=== PATIENT | female | born 1980 | race Caucasian/White ===

== ENCOUNTER 2016-10-24 03:50 | Emergency (ER) | payer BC, OTHER ==
[~2016-10-24] VITALS: Ht 162.6 cm; Wt 54.7 kg
[2016-10-24 03:53] VITALS: TEMP 37; Ht 162.6 cm; Wt 54.7 kg
[2016-10-24] MEDS ORDERED: KETOROLAC TROMETHAMINE 30 MG/ML VIAL IV STA (04:26)
--- NOTE | 2016-10-24 04:27 | EMERGENCY ROOM VISIT NOTE ---
History Report prepared by Giovana: Edis Robles Under the Supervision of: Dr. Tiff Watkins D.O. First contact with patient: 03:59 Chief Complaint: FLANK PAIN Stated Complaint: LEFT SIDE,BACK AND FRONT PAIN History of Present Illness The patient is a 35 year old female who presents to the Emergency Room with complaints of persistent left flank pain for one week. The pain radiates to her left lower quadrant and is rated 4/10 in severity. The patient was unable to sleep tonight secondary to pain, which prompted her current visit. The patient was seen by a [facility] walk-in clinic where she had a negative urine test and was told her pain is probably musculoskeletal. The patient denies urinary symptoms. The patient notes that she sleeps in awkward positions due to her 4 year old child sleeping in bed with her and her , which could be a source of musculoskeletal pain. She has not started any new strenuous activities recently. The patient went to a chiropractor for some finger numbness she was experiencing. The chiropractor resolved her numbness but did not affect her flank pain. The patient denies sore throat or cough. She has two children at home at 4 and 2 years old. Source of History: patient Onset: one week Position: back (left flank) Symptom Intensity: 4/10 Timing: other (persistent) Associated Symptoms: + abdominal pain, No urinary symptoms Review of Systems See HPI for pertinent positives & negatives. A total of 10 systems reviewed and were otherwise negative. Past Medical & Surgical Medical Problems: (1) Carpal Tunnel Syndrome (2) Carpal Tunnel Syndrome (3) Family History No pertinent family history Social History Smoking Status: Never Smoker Marital Status: Housing Status: lives with family Occupation Status: employed Current/Historical Medications Scheduled Control Pills ( Control Pills), 1 TAB PO DAILY Allergies Coded Allergies: No Known Allergies (Unverified , 10/24/16) Physical Exam Vital Signs Date Time Temp Pulse Resp B/P Pulse Ox O2 Delivery O2 Flow Rate FiO2 10/24/16 05:50 66 20 121/80 98 Room Air 10/24/16 03:53 37.0 80 18 137/87 100 Room Air Physical Exam HEENT: Head - normocephalic and atraumatic Pupils are equal, round, and reactive to light. Extraocular eye muscles are intact, and sclera are anicteric. Nose - moist nasal mucosa without discharge. Mouth - moist buccal mucosa. Oropharynx is nonerythematous and there is no tonsillar exudate or edema noted. Neck: Supple; no JVD, nuchal rigidity, cervical lymphadenopathy, or auscultated bruits. Heart: Regular rate and rhythm. There is a normal S1 and S2 with no murmurs, clicks, or gallops appreciated. Lungs: Clear to auscultation bilaterally with no wheezes, rales, or rhonchi. Abdomen: Soft, nondistended, with good bowel sounds. There are no palpable pulsatile masses or hepatosplenomegaly. There is no guarding, rigidity, or rebound noted. Left CVA tenderness to palpation. No skin lesions were identified. Extremities: No evidence of cyanosis, clubbing, or edema. There are easily palpable peripheral pulses. Skin: warm and dry with good turgor and no rashes. Medical Decision & Procedures ER Provider Diagnostic Interpretation: CT results as stated below per my review and radiologist interpretation: CT ABDOMEN & PELVIS: Noncontrast study. No renal stones or hydronephrosis. The ureters are not fully traced along their entire course. No definite calcifications are visualized along the expected paths to suggest ureteral stones. No bladder stones. Hepatomegaly. No radiopaque gallstones. No pancreatitis. Normal appendix. No diverticulitis. No free air or fluid collections. Trace amount of free fluid in cul-de-sac is likely physiologic. No definite adnexal cysts or masses. Normal caliber abdominal aorta. Radiologist: Isabella Giordano MD. Laboratory Results 10/24/16 04:35 Red Blood Count 4.33, Mean Corpuscular Volume 94.0, Mean Corpuscular Hemoglobin 32.3, Mean Corpuscular Hemoglobin Concent 34.4, Mean Platelet Volume 8.8, Neutrophils (%) (Auto) 64.2, Lymphocytes (%) (Auto) 26.4, Monocytes (%) (Auto) 6.9, Eosinophils (%) (Auto) 1.9, Basophils (%) (Auto) 0.5, Neutrophils # (Auto) 5.46, Lymphocytes # (Auto) 2.25, Monocytes # (Auto) 0.59, Eosinophils # (Auto) 0.16, Basophils # (Auto) 0.04 10/24/16 04:35 Test 2/28/17 04:26 10/24/16 04:35 Urine Test NEG (NEG) White Blood Count 8.51 K/uL (4.8-10.8) Red Blood Count 4.33 M/uL (4.2-5.4) Hemoglobin 14.0 g/dL (12.0-16.0) Hematocrit 40.7 % (37-47) Mean Corpuscular Volume 94.0 fL (80-100) Mean Corpuscular Hemoglobin 32.3 pg (25-34) Mean Corpuscular Hemoglobin Concent 34.4 g/dl (32-36) Platelet Count 225 K/uL (130-400) Mean Platelet Volume 8.8 fL (7.4-10.4) Neutrophils (%) (Auto) 64.2 % Lymphocytes (%) (Auto) 26.4 % Monocytes (%) (Auto) 6.9 % Eosinophils (%) (Auto) 1.9 % Basophils (%) (Auto) 0.5 % Neutrophils # (Auto) 5.46 K/uL (1.4-6.5) Lymphocytes # (Auto) 2.25 K/uL (1.2-3.4) Monocytes # (Auto) 0.59 K/uL (0.11-0.59) Eosinophils # (Auto) 0.16 K/uL (0-0.5) Basophils # (Auto) 0.04 K/uL (0-0.2) RDW Standard Deviation 44.4 fL (36.4-46.3) RDW Coefficient of Variation 12.8 % (11.5-14.5) Immature Granulocyte % (Auto) 0.1 % Immature Granulocyte # (Auto) 0.01 K/uL (0.00-0.02) Urine Color YELLOW Urine Appearance CLEAR (CLEAR) Urine pH 6.0 (4.5-7.5) Urine Specific Viola 1.017 (1.000-1.030) Urine Protein NEG (NEG) Urine Glucose (UA) NEG (NEG) Urine Ketones NEG (NEG) Urine Occult Blood NEG (NEG) Urine Nitrite NEG (NEG) Urine Bilirubin NEG (NEG) Urine Urobilinogen NEG (NEG) Urine Leukocyte Esterase NEG (NEG) Anion Gap 10.0 mmol/L (3-11) Est Creatinine Clear Calc Drug Dose 74.5 ml/min Estimated GFR () 94.7 Estimated GFR (Non- 81.7 BUN/Creatinine Ratio 16.6 (10-20) Calcium Level 8.6 mg/dl (8.5-10.1) Total Bilirubin 0.5 mg/dl (0.2-1) Direct Bilirubin 0.1 mg/dl (0-0.2) Aspartate Amino Transf (AST/SGOT) 15 U/L (15-37) Alanine Aminotransferase (ALT/SGPT) 27 U/L (12-78) Alkaline Phosphatase 33 U/L (45-117) Total Protein 8.2 gm/dl (6.4-8.2) Albumin 4.6 gm/dl (3.4-5.0) Laboratory results per my review. Medications Administered Medications (Trade) Dose Ordered Sig/Horacio Route Start Time Stop Time Status Last Admin Dose Admin Ketorolac Tromethamine (Toradol Inj) 30 mg NOW STAT IV 10/24/16 04:26 10/24/16 04:28 DC 10/24/16 04:41 30 MG Procedure Medications administered include Toradol IV. ED Course 0420: Past medical records reviewed. The patient was evaluated in room B2. A complete history and physical exam was performed. An IV lock was initiated and labs are drawn as above. A urine specimen was obtained. 0426: Toradol 30 mg IV. The patient went for CT scan of the abdomen/pelvis as described above. 0540: Went over the lab results with her. She had moderate relief from the Toradol. 0607: Reassessed the patient. Discussed the findings with her. She verbalized understanding and agreement of the treatment plan. The patient is ready for discharge. Medical Decision The patient is a 35 year old female who presents to the ED with flank pain. Differential diagnosis includes musculoskeletal back pain, pyelonephritis, Shingles, or kidney stone. Laboratory interpretation: negative urine, negative , normal renal functions and LFTs, normal glucose, normal white count, normal H&H. This is a 35-year-old female patient who presents to the emergency department with left-sided flank pain for the past couple of weeks that has been intermittent. Urinalysis was unremarkable. CT scan of the abdomen/pelvis showed no findings of the left flank. There was hepatomegaly noted by the radiologist. I reviewed these results with the patient. I've asked to follow- up with her PCP with regards to the hepatomegaly. It seems that the discomfort she has in her left flank is most likely musculoskeletal in origin. I have asked her to follow-up with her PCP and possibly consider massage therapy or physical therapy. She can use Tylenol or Motrin for pain at home. Impression Primary Impression: Left flank pain Scribe Attestation The scribe's documentation has been prepared under my direction and personally reviewed by me in its entirety. I confirm that the note above accurately reflects all work, treatment, procedures, and medical decision making performed by me. Departure Information Dispostion Home / Self-Care Referrals Karyna Judge, (PCP) Forms HOME CARE DOCUMENTATION FORM, IMPORTANT VISIT INFORMATION Patient Instructions ED Flank Pain Uncertain Cause, My [facility] Additional Instructions Rest. limit strenuous activity Take tylenol or ibuprofen for pain
[2016-10-24] MEDS ORDERED: BCPILLS PO (04:48)
[2016-10-24 04:54] LABS: BASO % 0.5 %; BASO ABS # 0.04 K/uL (0-0.2); COMPLETE YES; EOS % 1.9 %; HEMATOCRIT 40.7 % (37-47); IG% 0.1 %; LYMPH % 26.4 %; LYMPH ABS # 2.25 K/uL (1.2-3.4); MEAN CORPUSCULAR HEMOGLOBIN 32.3 pg (25-34); MEAN CORPUSCULAR HGB CONC 34.4 g/dl (32-36); MEAN PLATELET VOLUME 8.8 fL (7.4-10.4); MONO % 6.9 %; NEUT % 64.2 %; PLATELET COUNT 225 K/uL (130-400); RED BLOOD COUNT 4.33 M/uL (4.2-5.4); WHITE BLOOD COUNT 8.51 K/uL (4.8-10.8)
[2016-10-24 05:01] LABS: MANUAL MICROSCOPIC REQUIRED? NO; REVIEW REQ? NO; URINE APPEARANCE CLEAR (CLEAR); URINE BILIRUBIN NEG (NEG); URINE COLOR YELLOW; URINE NITRITE NEG (NEG); URINE SPECIFIC GRAVITY 1.017 (1.000-1.030); UROBILINOGEN NEG (NEG)
[2016-10-24 05:11] LABS: BUN/CREATININE RATIO 16.6 (10-20); CALCIUM 8.6 mg/dl (8.5-10.1); CREATININE 0.91 mg/dl (0.60-1.20); POTASSIUM 3.6 mmol/L (3.5-5.1)
[2016-10-24 05:50] VITALS: BP 121/80; PULSE 66; O2SAT 98
--- NOTE | 2016-10-24 07:39 | DIAGNOSTIC IMAGING REPORT ---
ABDOMEN AND PELVIS CT WITHOUT CONTRAST CT DOSE: 344.63 mGy.cm HISTORY: Flank pain eval for stone on the left TECHNIQUE: Multiaxial CT images of the abdomen and pelvis were performed without the use of intravenous and oral contrast according to the standard department stone protocol. COMPARISON STUDY: 10/13/2014 FINDINGS: The lung bases are clear. The unenhanced liver, gallbladder, spleen, pancreas, and adrenal glands are unremarkable. No renal stones or hydronephrosis. No bowel wall thickening or obstruction. The pelvic organs are unremarkable. No suspicious lytic or blastic osseous lesions. IMPRESSION: No renal stones or hydronephrosis. Electronically signed by: Aakash Chaudhry M.D. 10/24/2016 7:37 AM Dictated Date/Time: 10/24/2016 7:32 AM
== END 2016-10-24 06:24 | disposition home or self-care (01) ==
LOC: C.EDB 03:51
DX: R10.9 Unspecified abdominal pain (principal)